=== PATIENT | female | born 1970 | race Caucasian/White ===

== ENCOUNTER → 2023-09-14 06:29 | Day surgery (SDC) | payer OTHER, SELFPAY | LOC: GI 06:29 | PROVIDERS: ATTENDING PHYSICIAN Internal Medicine | DX: Z12.11 Encounter for screening for malignant neoplasm of colon (principal); K57.30 Diverticulosis of large intestine without perforation or abscess without bleeding; K64.9 Unspecified hemorrhoids; D12.0 Benign neoplasm of cecum; D12.2 Benign neoplasm of ascending colon; R13.10 Dysphagia, unspecified; K31.89 Other diseases of stomach and duodenum; K44.9 Diaphragmatic hernia without obstruction or gangrene; K31.7 Polyp of stomach and duodenum; Z98.890 Other specified postprocedural states; Z86.010 Personal history of colon polyps | CPT/HCPCS: 45385; 45380; 43239; 88305 ==

== ENCOUNTER → 2024-12-19 18:20 | Outpatient (REF) | payer OTHER, SELFPAY | LOC: WDC 18:20 | PROVIDERS: ATTENDING PHYSICIAN Obstetrics & Gynecology; FAMILY PHYSICIAN Family Medicine | DX: Z12.31 Encounter for screening mammogram for malignant neoplasm of breast (principal) | CPT/HCPCS: 77063; 77067 ==